=== PATIENT | female | born 1975 | race Caucasian/White ===

== ENCOUNTER 2016-09-25 07:02 | Emergency (ER) | payer OTHER ==
[~2016-09-25 07:02] MED LIST: CATAPRES 0.1MG0.1 MG PO; CEFUROXIME250 MG PO; HUMALOG100 UNIT/1 SQ; KLONOPIN TAB 00.5 MG PO; LISINOPRIL5 MG PO; METHADONE HCL T10 MG PO; NEURONTIN 400400 MG PO; PHENERGAN 25 MG25 M1 PO; ZANAFLEX 4 MG TA4 MG PO
[2016-09-25 08:56] LABS: HEMOGLOBIN 14.4 gm/dl (12.3-15.3); RED BLOOD COUNT 4.89 M/UL (4.00-5.10)
[2016-09-25 09:09] LABS: BUN/CREATININE RATIO 17 (0-10)
== END 2016-09-25 13:45 | disposition left against medical advice (07) ==
LOC: ER1 07:02
PROVIDERS: Emergency Medicine
DX: S00.83XA Contusion of other part of head, initial encounter (principal); S20.211A Contusion of right front wall of thorax, initial encounter; S50.11XA Contusion of right forearm, initial encounter; Y04.2XXA Assault by strike against or bumped into by another person, initial encounter; Y07.490 Male cousin, perpetrator of maltreatment and neglect; Y92.009 Unspecified place in unspecified non-institutional (private) residence as the place of occurrence of the external cause; Z88.5 Allergy status to narcotic agent; Z88.8 Allergy status to other drugs, medicaments and biological substances
CPT/HCPCS: 36415; 36600; 70450; 70486; 71260; 72125; 72128; 72131; 80053; 80307; 81001; 82009; 82803; 82962; 83690; 84703; 85025; 96374; 96375; 96376; 99284; J2270; J2405; J7050; Q9962

== ENCOUNTER 2016-10-27 23:36 | Emergency (ER) | payer OTHER | END 2016-10-28 01:00 | disposition left against medical advice (07) | LOC: ER1 23:36 | DX: Z53.21 Procedure and treatment not carried out due to patient leaving prior to being seen by health care provider (principal) ==

== ENCOUNTER 2016-11-20 04:51 | Emergency (ER) | payer OTHER ==
[2016-11-20 08:31] LABS: HEMOGLOBIN 15.3 gm/dl (12.3-15.3); RED BLOOD COUNT 5.27 M/UL (4.00-5.10); WHITE BLOOD COUNT 9.4 K/UL (4.5-11.0)
[2016-11-20 08:48] LABS: BUN/CREATININE RATIO 18 (0-10)
== END 2016-11-20 12:47 | disposition home or self-care (01) ==
LOC: ER1 04:51
PROVIDERS: Emergency Medicine
DX: S13.4XXA Sprain of ligaments of cervical spine, initial encounter (principal); S80.211A Abrasion, right knee, initial encounter; S90.511A Abrasion, right ankle, initial encounter; S23.3XXA Sprain of ligaments of thoracic spine, initial encounter; S33.5XXA Sprain of ligaments of lumbar spine, initial encounter; S09.90XA Unspecified injury of head, initial encounter; E11.65 Type 2 diabetes mellitus with hyperglycemia; I10 Essential (primary) hypertension; Z88.5 Allergy status to narcotic agent; Z88.8 Allergy status to other drugs, medicaments and biological substances; V86.59XA Driver of other special all-terrain or other off-road motor vehicle injured in nontraffic accident, initial encounter
CPT/HCPCS: 36415; 70450; 71260; 72070; 72125; 72131; 73564; 73590; 73610; 80053; 81001; 82962; 84703; 85025; 96374; 96375; 96376; 99284; J0690; J2270; J2405; J7030; J7050; Q9962